=== PATIENT | male | born 1980 | race Caucasian/White ===

== ENCOUNTER 2017-12-11 18:18 | Emergency (ER) | payer MEDICAID ==
[2017-12-11 18:18] VITALS: BMI 26.6
[2017-12-11 18:41] VITALS: BP 124/75; PULSE 57; RESP 15; TEMP 98.2; O2SAT 99
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
== END 2017-12-11 19:31 | disposition home or self-care (01) ==
LOC: C.ER 18:18
DX: S66.912A Strain of unspecified muscle, fascia and tendon at wrist and hand level, left hand, initial encounter (principal); V89.9XXA Person injured in unspecified vehicle accident, initial encounter